=== PATIENT | female | born 1960 | race Caucasian/White ===

== ENCOUNTER 2016-05-14 12:42 | Inpatient (IN) | payer BC, SELFPAY ==
[2016-04-30 18:37] LABS: HEMATOCRIT 47.5 % (36.0-48.0); HEMOGLOBIN 15.2 g/dL (12.0-16.0)
[2016-04-30 19:02] LABS: BUN (BLOOD UREA NITROGEN) 9 MG/DL (6-23); CALCIUM, SERUM 9.7 MG/DL (8.5-10.4); CEA 8.1 NG/ML; CHLORIDE, SERUM 106 MMOL/L (96-112); CO2 (CARBON DIOXIDE) 26 MMOL/L (24-34); CREATININE 0.53 MG/DL (0.55-1.02); GFR AFRICAN AMERICAN 123 ML/MIN (>=60); GFR NON AFRICAN AMERICAN 106 ML/MIN (>=60); GLUCOSE, SERUM 112 MG/DL (60-99); POTASSIUM, SERUM 4.2 MMOL/L (3.5-5.3); SODIUM, SERUM 142 MMOL/L (135-148)
--- NOTE | ~2016-05-14 | OP ---
Record Of Operation [facility] [address] [place]. [address] NAME: JIM MEEHAN : 60 STATUS : ADM IN PAT#: [id number] AGE: 56 ADM/REG DATE : 05/14/16 MR#: [id number] REPORT SERV DATE: 05/14/16 DICTATED BY: MARY NEWMAN DATE: 05/14/16 REPORT STATUS : Draft TRANSCRIBED BY: MODAmaury DATE: 05/14/16 DATE OF PROCEDURE: 05/14/2016 PREPROCEDURE DIAGNOSIS: Polyp too large for endoscopic resection at the cecum. POSTPROCEDURE DIAGNOSIS: Polyp too large for endoscopic resection at the cecum. PROCEDURE: Lap hand assist right hemicolectomy. POLICE DEPARTMENT SECRETARY: Charline. DESCRIPTION OF PROCEDURE: The patient was taken to the operating room, induced under general anesthesia, placed into the supine position after Chappell catheter was placed and the left arm was tucked. She was prepped and draped in the usual sterile fashion. A 6 cm incision was made at the level of the umbilicus. This was carried down to the level of fascia using cautery. Anterior fascia was opened between two Kochers. Posterior fascia was opened between two hemostats. The incision was extended both proximally and distally with a finger in the abdomen to protect the bowel contents. At this point, wound protector from the GelPort lid was placed in through the abdomen. The lid was attached, it was insufflated on high flow using an 11 mm trocar through the lid. At this point, laparoscopy was performed using a 30 degree scope. There was no evidence of carcinomatosis. The patient was morbidly obese. This did make the procedure somewhat challenging due to the amount of intraabdominal adipose tissue. Her BMI is 36.27 which actually makes her super obese. For this reason, I am going to apply a modifier 22 to the case. Once the abdomen was insufflated, two trocars were placed, an 11 mm trocar in the left lower quadrant by first making a stab incision with a scalpel and then under direct laparoscopic guidance, the bladed trocar was placed in a 12 mm one hand breath away from the GelPort lid in the epigastrium to the right of the falciform. Once this was accomplished, the omentum was placed over the transverse colon. There was tattoo dye from the colon throughout the abdomen, but it appeared to be localized at the level of the cecum. The right colon was mobilized from the terminal ilium along the white line of Toldt to the hepatic flexure and then mobilized to the midline where the duodenum was visualized in the retroperitoneum. At this point, the cecum was elevated and the ileocolic vessels were traced back to their origin. The window was made in the mesentery on either side of the ileocolic vessels which were transected using a white load of the Endo-JESSICA. The duodenum was visualized posterior to this and was without injury. Then the medial to lateral plane was extended taking great care to avoid injury to the duodenum. The entire right colon was completely mobilized and the omentum freed from the transverse colon in preparation for mobilization. At this point, the GelPort lid was removed. The specimen was brought up through the wound protector, blue towels on the abdomen. The terminal ilium was transected 5 cm from the ileocecal valve using a blue load of the Endo-JESSICA. The proximal transverse colon was transected after the right branch of the middle colic vessels was transected with Harmonic Scalpel and the colon was transected using a blue load of the Endo-JESSICA. The specimen was passed off the table, sent to Pathology after it was opened and there was a 3 x 2 cm sessile mass located in the proximal ascending colon. At this point, Dr. Vega performed the anastomosis by taking the antimesenteric corner off each limb of bowel placing a limb of the endo JESSICA down each limb firing on the Record Of Operation [address] [address] NAME: JIM MEEHAN : 60 STATUS : ADM IN PAT#: [id number] AGE: 56 ADM/REG DATE : 05/14/16 MR#: [id number] REPORT SERV DATE: 05/14/16 DICTATED BY: MARY NEWMAN DATE: 05/14/16 REPORT STATUS : Draft TRANSCRIBED BY: MODL DATE: 05/14/16 antimesenteric border. Great care was taken not to juxtapose staple lines as the new enterotomy was closed using Allis clamps and a TX stapler was used to close the new enterotomy. The remnant was removed with curved Haas scissors. Then any intersecting staple line was closed, primary was reinforced with a [id number] 3-0 Vicryl suture including a crotch stitch, the mesenteric defect was closed with a running 3-0 Vicryl. At this point, all dirty instruments were removed from the table they were used to open the specimen. Dr. Vega then changed her gloves. The two trocar sites were closed intracorporeally 2-0 Vicryl stitch on a UR6. The omentum was placed over the anastomosis after the lap pad was removed followed by Seprafilm and the midline incision was closed with looped PDS proximal to middle, distal to middle, tying in the center, irrigating the wounds, closing the skin with 4-0 Monocryl subcu followed by benzoin, Steri-Strips, two Band-Aids, and an airstrip. She tolerated the procedure well. GUSTAVO/CAROL Mary Newman M.D. / [id number] CC: Destiny Poe M.D. William Buchner, M.D.
--- NOTE | ~2016-05-14 | HP ---
History And Physical [place] [id number] [facility] [place]. [address] NAME: JIM MEEHAN : 60 STATUS : ADM IN PAT#: [id number] AGE: 56 ADM/REG DATE : 05/14/16 MR#: [id number] REPORT SERV DATE: 05/14/16 DICTATED BY: MARY CALLAHAN DATE: 05/14/16 REPORT STATUS : Draft TRANSCRIBED BY: CAROL DATE: 05/14/16 DATE OF ADMISSION: 05/14/2016 REASON FOR ADMISSION: Adenoma in the ascending colon, too large for endoscopic resection. PAST MEDICAL HISTORY: Colon polyps, nicotine dependence, anxiety, and depression. PAST SURGICAL HISTORY: Significant for section and tubal ligation. SOCIAL HISTORY: She smokes one pack of cigarettes a day. She is a social drinker, consumes one beer per month, and she is . FAMILY HISTORY: Significant for throat cancer, stomach cancer, and colon cancer in her paternal grandfather, father, and her brother. ALLERGIES: CODEINE. MEDICATIONS: Citalopram, naproxen, and melatonin. REVIEW OF SYSTEMS: As stated in the HPI, otherwise, negative. PHYSICAL EXAMINATION: VITAL SIGNS: 68, 134/84. She is 218 pounds, which is a BMI of 36.27. GENERAL: Alert, obese white female, in no acute distress. HEENT: Normocephalic, atraumatic. EOMI. PERRLA. Oropharynx is clear. NECK: Supple. No lymphadenopathy. Clear to auscultation bilaterally. HEART: Regular rate and rhythm. ABDOMEN: Obese, protuberant. She has scars consistent with prior tubal ligation. Nontender. EXTREMITIES: Moves all extremities well. NEUROLOGIC: Cranial nerves 2 through 12 intact. No rashes. ASSESSMENT: A 56-year-old female with a family history of colon cancer with an ascending colon mass, too large for endoscopic resection. PLAN: Plan is for Lap-Band assist, right hemicolectomy. I have discussed risks, benefits, and alternatives. She understands and is willing to proceed. GUSTAVO/CAROL Mary Callahan M.D. History And Physical [address] [place]. [address] NAME: JIM MEEHAN : 60 STATUS : ADM IN PAT#: [id number] AGE: 56 ADM/REG DATE : 05/14/16 MR#: [id number] REPORT SERV DATE: 05/14/16 DICTATED BY: MARY CALLAHAN DATE: 05/14/16 REPORT STATUS : Draft TRANSCRIBED BY: CAROL DATE: 05/14/16 / [id number] CC: Mary Callahan M.D.
[~2016-05-14 12:42] MED LIST: ALEVE220 MG PO; CELEXA20 PO; MELATONIN5 M1 PO
[2016-05-14 17:21] LABS: HEMATOCRIT 43.1 % (36.0-48.0); HEMOGLOBIN 14.3 g/dL (12.0-16.0)
[2016-05-15 06:29] LABS: BASOPHILS 0.1 %; BASOPHILS ABSOLUTE 0.01 10/3/uL (0.0-0.16); EOSINOPHILS 0.1 %; EOSINOPHILS ABSOLUTE 0.01 10/3/uL (0.0-0.53); HEMATOCRIT 42.1 % (36.0-48.0); HEMOGLOBIN 13.9 g/dL (12.0-16.0); IMMATURE GRANULOCYTES 0.3 %; IMMATURE GRANULOCYTES ABSOLUTE 0.05 10/3/uL (0.0-0.11); LYMPHOCYTES 10.5 %; LYMPHOCYTES ABSOLUTE 1.95 10/3/uL (0.67-4.30); MEAN CORPUSCULAR HEMOGLOB 29.3 pg (26.0-34.0); MEAN CORPUSCULAR VOLUME 88.8 fL (80-100); MEAN PLATELET VOLUME 8.9 fL (9.2-13.0); MONOCYTES 6.6 %; MONOCYTES ABSOLUTE 1.23 10/3/uL (0.21-1.20); NEUTROPHILS 82.4 %; NEUTROPHILS ABSOLUTE 15.25 10/3/uL (2.02-8.40); PLATELET COUNT 296 10/3/uL (150-400); RBC DISTRIBUTION WIDTH 13.9 % (12.0-16.0); RED CELL COUNT 4.74 10/6/uL (4.0-5.6); WHITE BLOOD CELLS 18.5 10/3/uL (4.5-10.5)
[2016-05-15 06:34] LABS: BUN (BLOOD UREA NITROGEN) 6 MG/DL (6-23); CHLORIDE, SERUM 103 MMOL/L (96-112); CO2 (CARBON DIOXIDE) 25 MMOL/L (24-34); CREATININE 0.71 MG/DL (0.55-1.02); GFR AFRICAN AMERICAN 110 ML/MIN (>=60); GFR NON AFRICAN AMERICAN 95 ML/MIN (>=60); POTASSIUM, SERUM 4.4 MMOL/L (3.5-5.3); SODIUM, SERUM 139 MMOL/L (135-148)
[2016-05-15 06:36] LABS: CALCIUM, SERUM 8.1 MG/DL (8.5-10.4); GLUCOSE, SERUM 145 MG/DL (60-99)
[2016-05-15 06:40] LABS: MANUAL DIFF NO %
[2016-05-15 07:19] LABS: BAND NEUTROPHILS 3 %; EOSINOPHILS 2 %; EOSINOPHILS ABSOLUTE (CALC) 0.37 10/3/uL (0.0-0.53); LYMPHOCYTES 8 %; LYMPHOCYTES ABSOLUTE (CALC) 1.48 10/3/uL (0.67-4.30); MONOCYTES 19 %; MONOCYTES ABSOLUTE (CALC) 3.52 10/3/uL (0.21-1.20); NEUTROPHILS ABSOLUTE (CALC) 13.14 10/3/uL (2.02-8.40); SEGMENTED NEUTROPHIL (0) 68 %; TOTAL NUCLEATED CELLS 100
[2016-05-15 07:20] LABS: RBC MORPHOLOGY NORM (NORMAL)
[2016-05-16] MEDS ORDERED: DIL2TAB PO (08:42)
== END 2016-05-16 11:20 | disposition home or self-care (01) | DRG 331 ==
LOC: SDC/OF 12:42 → PACU 16:52 → 5SO 19:34
PROVIDERS: Surgery
PROC: 0DTF4ZZ Resection of Right Large Intestine, Percutaneous Endoscopic Approach (ICD-10-PCS; principal; 2016-05-14 14:45)
DX: D12.2 Benign neoplasm of ascending colon (principal); E66.9 Obesity, unspecified; F32.9 Major depressive disorder, single episode, unspecified; F41.9 Anxiety disorder, unspecified; Z68.36 Body mass index [BMI] 36.0-36.9, adult; F17.210 Nicotine dependence, cigarettes, uncomplicated; Z86.010 Personal history of colon polyps; Z23 Encounter for immunization
CPT/HCPCS: 36415; 71020-PO; 80048; 82378; 85014; 85018; 85025; 86850; 86900; 86901; 88309; 90686; 93005; A9270-GY; C1765; C9113; G0008; J0690; J1885; J2250; J2270; J2405; J2550; J2710; J2795; J3010